=== PATIENT | female | born 1990 | race Two or more races ===

== ENCOUNTER → 2025-02-14 | Outpatient (CLI) | payer MEDICAID, SELFPAY ==
--- NOTE | 2025-02-14 08:43 | XR_ITS ---
Examination: Complete OB ultrasound, less than 14 weeks, transabdominal Date and time of exam: February 14, 2025 0847 hours INDICATIONS: Decreased movements today Technique: Obstetrical ultrasound images less than 14 weeks performed via transabdominal imaging Findings: Uterus 10.6 cm, CRL 1.1 cm corresponds to 7 weeks 2 days gestational age No cardiac motion Right ovary 3.3 cm arterial flow Left ovary 2.9 cm arterial flow IMPRESSION: demise pattern, suggest short-term follow-up
== END | disposition home or self-care (01) ==
LOC: SDIM 08:35
PROVIDERS: PCP Obstetrics & Gynecology; Referring Provider Obstetrics & Gynecology; Visit Provider Obstetrics & Gynecology
DX: O36.8 Maternal care for other specified fetal problems (principal); Z3A.01 Less than 8 weeks gestation of pregnancy
CPT/HCPCS: 76801

== ENCOUNTER → 2025-02-20 | Outpatient (CLI) | payer MEDICAID, SELFPAY ==
--- NOTE | 2025-02-20 14:06 | XR_ITS ---
Examination: Complete OB ultrasound, less than 14 weeks, transabdominal Date and time of exam: February 20, 2025 1436 hours INDICATIONS: Ultrasound February 14, 2025 7 week 2 day gestation no cardiac motion Technique: Obstetrical ultrasound images less than 14 weeks performed via transabdominal imaging Findings: Uterus 12.7 cm CRL 1.6 cm which corresponds to 8 weeks 0 day gestational age No cardiac motion no movement Right ovary 2.9 cm arterial flow 18 x 20 mm cyst Left ovary 3.6 cm arterial flow IMPRESSION: demise
== END | disposition home or self-care (01) ==
PROVIDERS: PCP Obstetrics & Gynecology; Referring Provider Obstetrics & Gynecology; Visit Provider Obstetrics & Gynecology
DX: O36.4XX0 Maternal care for intrauterine death, not applicable or unspecified (principal)
CPT/HCPCS: 76801

== ENCOUNTER 2025-02-21 21:13 | Emergency (ER) | payer MEDICAID, SELFPAY ==
[2025-02-21 21:20] VITALS: BP 143/83; PULSE 83; RESP 20; TEMP 37.5; O2SAT 98
[2025-02-21 22:00] VITALS: BP 137/72; PULSE 74; RESP 16; TEMP 37.1; O2SAT 98
[2025-02-21 22:03] VITALS: BMI 42.5
--- NOTE | 2025-02-21 22:06 | PC.NURSE ---
PT STATES SHES USED A TOTAL OF 2 PADS.
--- NOTE | 2025-02-21 22:06 | PC.NURSE ---
PT STARTED BLEEDING 02/20 THAT WAS SPOTTING. PT STATES THAT SHE WENT TO [facility] WHEN SPOTTING STARTED. AT [place] THEY FOUND NO VIABILITY. PT STATES THAT SHE LOST HER BABY 02/14/2025 WHEN SHE DID AN ULTRASOUND. BLEEDING STARTED TO GET EXCESSIVE STARTING TODAY
--- NOTE | 2025-02-21 22:20 | EDNOTE_ITS ---
ED OB Contraction Preg RMI/HPI General Chief complaint: Vaginal Bleeding Stated complaint: VAGINAL BLEEDING Time Seen by Provider: 02/21/25 22:26 Arrival date/time: 02/21/25 21:13 RME / HPI RME / HPI Narrative: Dr. Sharma?s Main ED Evaluation: 34yo female with EGA 14 weeks reportedly underwent US on 02/14 which demonstrated demise, treated for otitis media on 02/19 now reports vaginal spotting x 48 hours. Reports mild diffuse lower pelvic pain. No lighthead, dizz, near sync, or chest pain. Related Data Home Medications ?Medication ?Instructions ?Recorded ?Confirmed vitamins-iron fumarate 27 1 tab PO QDAY 07/3102/19/21 mg iron-folic acid 0.8 mg tablet ( Vitamin) ferrous sulfate 325 mg (65 mg 325 mg PO QDAY 02/19/21 02/19/21 iron) tablet (iron) folic acid 1 mg tablet 1 mg PO QDAY 02/19/21 Previous Rx's ?Medication ?Instructions ?Recorded naproxen 375 mg tablet 375 mg PO BID PRN pain #10 t abs 02/22/25 promethazine 12.5 mg tablet 12.5 mg PO TID nausea #20 tabs 02/22/25 Allergies Allergy/AdvReac Type Severity Reaction Status Date / Time No Known Allergies Allergy Verified 02/18/21 23:58 Review of Systems Review of Systems Systems Reviewed: All systems reviewed, normal except as documented Past Medical History Past Medical History NEUROLOGIC: Negative Neurological Disorders or Seizures CARDIAC: Negative Cardiac Disorders or Congestive Heart Failure RESPIRATORY: Negative Chronic Obstructive Pulmonary Disease (COPD) GASTROINTESTINAL: Negative Gastrointestinal Disorders, Hepatitis or Colorectal Cancer GENITOURINARY: Positive Genitourinary Disorders; Negative Renal Disease or Prostate Cancer REPRODUCTIVE: Positive Previous Pregnancies; Negative Breast Cancer or Testicular Cancer MUSCULOSKELETAL: Negative Musculoskeletal Disorders or Bone Cancer ENDOCRINE: Negative Endocrine Disorders, Diabetes Mellitus Type 1 or Diabetes Mellitus Type 2 HEMATOLOGIC: Positive Blood Disorders and Anemia OTHER HISTORY: Positive Hospitalization; Negative Autoimmune Disease, Down Syndrome, Developmental Delay, Shingles, Falls, Blood Transfusions, Blood Transfusion Reaction, Anesthesia Reactions, Organ Transplant, Chemotherapy, Radiation Therapy, Hyperbaric Therapy, MRSA, VRSA, Vancomycin-Resistant Enterococci, Human Immunodeficiency Virus (HIV), Chicken Pox, Measles, Mumps, Rubella (Romanian Measles), Pertussis, Clostridium Difficile, Cancer, Breast Cancer, Cervical Cancer, Colorectal Cancer, Lung Cancer, Ovarian Cancer, Prostate Cancer or Testicular Cancer Family History FAMILY HISTORY: Positive Family Cancer (FATHER- COLON CA) and Family Surgery (FATHER- COLON SURGERY); Negative Family Psychiatric Problems, Family Respiratory Disorders, Family C ardiac Disorders, Family Gastrointestinal Problems or Family Anesthesia Reaction Surgical History SURGICAL: Negative Section or Organ Transplant Social History SMOKING STATUS: Never smoker ED Exam Narrative Physical exam: GENERAL APPEARANCE: alert and oriented x 4, well-developed, well-nourished, obese, no acute distress VITALS: All vitals were reviewed and the pulse ox is 98% on room air, which is normal according to my interpretation. HEENT: Normocephalic, atraumatic; pupils equal, round, reactive to light; EOMI; mucous membranes pink, moist; oropharynx clear NECK: Supple LUNGS: CTABL; no wheezes, no rales, no rhonchi HEART: Regular rate, regular rhythm; normal S1, S2; no murmurs ABDOMEN: non distended; obese; soft, mild suprapubic tenderness BACK: no CVA tenderness PELVIC: female glacing machine tender present; large clots in the vault, placental products at the external cervical os that was extracted with resolution of bleeding EXTREMITIES: atraumatic; no edema NEUROLOGIC: awake; alert and oriented x4; cranial nerves II-XII grossly intact; no focal sensory or motor deficits PSYCHIATRIC: appropriate mood and affect SKIN: warm, dry, normal color; no rashes Course Quality Measures none Orders Category Date Time Status Bedside Blood Glucose NOW Care 02/21/25 22:20 Active Continuous Pulse Oximetry NOW Care 02/21/25 22:20 Completed NPO NEEDED Care 02/21/25 22:20 Active US OB >= 14 weeks Fetus Stat Exams 02/22/25 00:05 Taken Beta HCG,Quantitative Stat Lab 02/21/25 22:44 Completed CBC Stat Lab 02/21/25 22:44 Completed CMP [Comprehensive Metabolic Panel] Stat Lab 02/21/25 22:44 Completed Urinalysis, C/S if Indicated Stat Lab 02/22/25 00:12 Completed Sodium Chloride 0.9% 1000 ml [Ns] 1,000 ml Med 02/21/25 22:23 Discontinued IV 999 mls/hr Sodium Chloride 0.9% 1000 ml [Ns] 1,000 ml Med 02/22/25 03:35 Discontinued IV 999 mls/hr Vital Signs Vital signs: Vital Signs Temperature 99.5 F 02/21/25 21:20 Pulse Rate 83 02/21/25 21:20 Respiratory Rate 20 02/21/25 21:20 Blood Pressure 143/83 H 02/21/25 21:20 Pulse Oximetry (%) 98 02/21/25 21:20 Oxygen Delivery Method Room Air 02/21/25 21:20 Vaginal Bleeding [facility] Narrative MDM Narrative: Scribe Attestation: 02/21/25 - Mary Hare am scribing for and in the presence of Dr. Sharma. 34yo female with EGA 14 weeks reportedly underwent US on 02/14 which demonstrated demise, treated for otitis media on 02/19 now reports vaginal spotting x 48 hours. Reports mild diffuse lower pelvic pain. Please see PE findings. Laboratory markers including CBC, chemistries, and UA without evidence of significant anemia, thrombocytopenia, or evidence of ongoing infection. [place] of EMR indicates is patient is O+ positive and thereby will defer on Rhogam. Patient was hydrated to correct volume deficit from volume loss and during course of evaluation, expelled large amount of clot. No signs of sepsis as patient remained hemodynamically stable throughout ED course. Pelvic US was conducted and no intrauterine contents identified. Suspect complete AB. Current HCG 866 (no baseline available) although patient with likely complete AB. will place on anti-inflammatory, antiemetics, and recommend close [employer]CH[employer] follow-up. Patient data External records reviewed:: [facility] previous records Clinical information provided by:: patient Social determinants that could affect healthcare access:: none Patient has the following chronic illnesses:: none How is presenting disease/condition affected by chronic disease/condition?: no chronic disease Evaluation data The following diagnostics were reviewed and interpreted by me:: lab results and radiology exam(s) Lab and/or radiology exams considered but not ordered:: none Interpretation Summary: See MDM. Medications / Prescriptions Medications or Prescriptions considered but not ordered:: none Medication administrations:: Medication Administration History Discontinued Medications Sodium Chloride (Ns) 1,000 mls @ 999 mls/hr IV .Q1H1M ONE Stop: 02/21/25 23:23 Last Infusion: 02/21/25 23:54 Dose: Infused Documented By: Admin: 02/21/25 22:43 Dose: 999 mls/hr Documented By: BARB Sodium Chloride (Ns) 1,000 mls @ 999 mls/hr IV .Q1H1M ONE Stop: 02/22/25 04:35 Last Admin: 02/22/25 03:54 Dose: 999 mls/hr Documented By: SMITA see above Consultations Consultation(s) initiated? (list below): No Diagnosis Vaginal Bleeding Differential Diagnosis: threatened , incomplete and other (complete AB) Most likely diagnosis given after review of the tests above:: complete AB Admission Indicated Admission indicated?: not indicated Admission Request Was there a request for admission?: No Disposition Plan Disposition Plan: Discharge Discharge Attestation Discharge Attestation: The patient and all family members were given an opportunity to ask questions and understood the discharge instructions. Discharge instructions specifically effects, indications for sooner follow up or return to the emergency department, and the expected course of current diagnosis. Patient condition: Stable Discharge Plan Plan Patient Disposition: HOME (Self Care) Prescriptions/Referrals Prescriptions/Med Rec: New promethazine 12.5 mg tablet 12.5 mg PO TID Qty: 20 0RF naproxen 375 mg tablet 375 mg PO BID PRN (Reason: pain) Qty: 10 0RF No Action Vitamin 27 mg iron- 0.8 mg Tablet 1 tab PO QDAY ferrous sulfate [iron] 325 mg (65 mg iron) Tablet 325 mg PO QDAY folic acid 1 mg Tablet 1 mg PO QDAY Referrals: No Primary/Family,Physician [Primary Care Provider] - In 1 week Problem List Clinical Impression: Complete Impression comment: Complete AB Patient/Caregiver Discharge Instructions Discharge Activity: activity as tolerated Diet Instructions: Regular diet Education Materials: ED MISCARRIAGE Completed Additional Instructions: Force fluids/medications directed/follow-up with [employer]IST[employer] physician in 3 to 5 days return if worsening. Print Language: Tuvaluan Stand Alone Forms: [employer] Award Info., Patient Portal Info Letter
[2025-02-21] MEDS: SODIUM CHLORIDE 0.9% 1000 ML 1,000 ML 999 ML IV (22:43)
[2025-02-21 23:01] LABS: Basophils # (Auto) 0.0 Thou/mm3 (0.0-0.2); Basophils % (Auto) 0 % (0-2.5); Eosinophils # (Auto) 0.2 Thou/mm3 (0.0-0.5); Eosinophils % (Auto) 1 % (0-10); Hematocrit 36.3 % (36.0-46.0); Hemoglobin 11.4 g/dL (12.0-16.0); Immature Granulocytes Auto 0.05 Thou/mm3 (0.00-0.00); Lymphocytes # (Auto) 2.9 Thou/mm3 (1.0-4.8); Lymphocytes % (Auto) 27 % (10-50); Mean Corpuscular HGB Conc 31.4 g/dl (31.0-37.0); Mean Corpuscular Hemoglobin 25.1 pg (25.0-35.0); Mean Corpuscular Volume 80 fL (80-100); Monocytes # (Auto) 0.9 Thou/mm3 (0.0-0.8); Monocytes % (Auto) 9 % (0-12); Neutrophils # (Auto) 6.4 Thou/mm3 (1.8-7.7); Neutrophils % (Auto) 61 % (37-80); Nucleated Red Blood Cell # 0.00 Thou/mm3 (0.00-0.00); Nucleated Red Blood Cell % 0 /100 WBC (0); Platelet Count 319 Thou/mm3 (140-440); RDW Standard Deviation 41.0 fL (36.4-46.3); Red Blood Count 4.54 Miln/mm3 (4.00-5.20); White Blood Count 10.5 Thou/mm3 (3.6-11.0)
[2025-02-21 23:21] LABS: Alanine Aminotransferase 57 U/L (10-49); Albumin, Serum 4.5 gm/dL (3.5-5.0); Albumin/Globulin Ratio 1.4 (1.2-2.2); Alkaline Phosphatase 93 U/L (46-116); Anion Gap 10 (7-16); Aspartate Amino Transferase 30 U/L (0-34); BUN/Creatinine Ratio 17 Ratio (12-20); Bilirubin,Total 0.4 mg/dL (0.3-1.2); Blood Urea Nitrogen 12 mg/dL (9-23); Calcium 9.7 mg/dL (8.3-10.6); Calcium (Corrected) 9.7 mg/dL (8.5-10.1); Carbon Dioxide 23.6 mMol/L (20.0-31.0); Chloride 105 mMol/L (98-107); Creatinine (Component) 0.7 mg/dL (0.6-1.3); Estimated Creatinine Clearance 132.8 mL/min (>60); Globulin 3.2 gm/dL (2.3-3.5); Glucose 91 mg/dL (74-106); Osmolality,Calculated 277 (275-295); Potassium 3.7 mMol/L (3.4-5.1); Sodium 139 mMol/L (136-145); Total Protein 7.7 gm/dL (5.7-8.2); eGFR > 60 See Note
[2025-02-21 23:27] LABS: Beta HCG,Quantitative 866 mIU/mL (<5.0)
--- NOTE | 2025-02-22 00:05 | XR_ITS ---
Examination: Complete OB ultrasound greater than 14 weeks Date and time of exam: February 22, 2025 0306 hours INDICATIONS: Onset abdominal pelvic pain beginning 9:00 PM last night Findings: Uterus 15.9 cm, endometrial stripe 13 mm No uterine mass or intrauterine gestation Right ovary 1.7 cm arterial flow. Left ovary 3.0 cm arterial flow No fluid in the cul-de-sac IMPRESSION: No uterine mass or intrauterine gestation
[2025-02-22 00:16] LABS: Collection Type, Urine Clean Catch
[2025-02-22 00:46] LABS: Bilirubin,Urine Negative (Negative); Blood,Urine 3+ (Negative); Color,Urine Dark-Red (Lt Yel-Yel); Culture Indicated,Urine Contaminated; Glucose, Urine Negative (Negative); Ketones,Urine Negative (Negative); Leukocyte Esterase,Urine Positive (Negative); Nitrite,Urine Negative (Negative); PH,Urine 6.0 (5.0-7.0); Protein,Urine 2+ (Neg - Trace); RBC,Urine 44366 /hpf (0-3); Specific Gravity,Urine 1.029 (1.001-1.035); Squamous Epithelial Cell,Urine 22 /hpf (0-5); Urobilinogen,Urine Negative mg/dL (0.0-1.0); WBC,Urine 129 /hpf (0-5)
[2025-02-22 01:13] LABS: Clarity,Urine Turbid (Clear/Hazy)
[2025-02-22] MEDS: SODIUM CHLORIDE 0.9% 1000 ML 1,000 ML 999 ML IV (03:54)
--- NOTE | 2025-02-22 05:23 | PRELIM_ITS ---
Pelvic ultrasound (transabdominal and transvaginal) with Doppler and wave Doppler spectral analysis. February 22, 2025 0306 hours Clinical history: Bleeding. Technique: Real-time, grayscale, transabdominal and transvaginal pelvic ultrasound was performed using Duplex scanning including arterial inflow, venous outflow, color and spectral Doppler. Comparison: No prior study is available for comparison. Findings: The uterus is normal in size measuring 15.9 x 6.1 x 7.7 cm. The endometrium is unremarkable and measures 1.3 cm. The right ovary measures 1.7 x 1.0 x 1.7 cm and is unremarkable. The left ovary measures 3.0 x 2.0 x 2.3 cm and is unremarkable. Both ovaries demonstrate color flow and spectral waveforms on Doppler evaluation. There is no adnexal mass. There is no free fluid on the submitted images. Impression: Unremarkable pelvic sonogram. No evidence of ovarian torsion. Report Electronically Signed By: Dequan Day 02/22/2025 5:21:59 AM [EST]
== END 2025-02-22 05:12 | disposition home or self-care (01) ==
PROVIDERS: Emergency Provider Emergency Medicine
DX: O03.9 Complete or unspecified spontaneous abortion without complication (principal)
CPT/HCPCS: 36415; 76805; 80053; 81001; 84702; 85025; 96360; 96361; 99283; J7030